=== PATIENT | female | born 1985 | race Two or more races ===

== ENCOUNTER 2024-08-29 14:40 | Emergency (ER) | payer MEDICAID, SELFPAY ==
--- NOTE | 2024-08-29 14:46 | PD.EDSKIN ---
ED Skin Abcess FB-RME/HPI General Chief complaint: Skin/Abscess/Foreign Body Stated complaint: RED BUMP RIGHT BREAST x 7 DAYS Time Seen by Provider: 08/29/24 14:41 Arrival date/time: 08/29/24 14:40 39-year-old female presents emergency department complaints of right breast swelling ongoing x 7 days patient reports no fever nausea vomiting no headache dizziness weakness patient reports no recent weight loss Limitations: no limitations Related Data Previous Rx's ?Medication ?Instructions ?Recorded ferrous sulfate 324 mg (65 mg 324 mg PO BID #60 tabs 01/13/22 iron) tablet,delayed release clindamycin HCl 300 mg capsule 300 mg PO TID 7 days #21 caps 08/29/24 Allergies Allergy/AdvReac Type Severity Reaction Status Date / Time No Known Allergies Allergy Verified 08/29/24 14:44 Review of Systems Review of Systems Systems Reviewed: All systems reviewed, normal except as documented Constitutional Constitutional: Reports system reviewed and no additional complaints, except as documented, Denies fever(s) and Denies headache(s) Eyes Eyes: Reports system reviewed and no additional complaints, except as documented and Denies blurry vision ENT Ears, Nose, Mouth, and Throat: Reports system reviewed and no additional complaints, except as documented, Denies headache(s), Denies nasal congestion and Denies nasal discharge Cardiovascular Cardiovascular: Reports system reviewed and no additional complaints, except as documented, Denies chest pain and Denies dyspnea Respiratory Respiratory: Reports system reviewed and no additional complaints, except as documented, Denies chest congestion, Denies cough and Denies dyspnea Gastrointestinal Gastrointestinal: Reports system reviewed and no additional complaints, except as documented and Denies abdominal pain Integumentary/Breasts Skin/Breast: Reports system reviewed and no additional complaints, except as documented, Denies rash, Reports breast pain, Reports breast skin changes and Reports breast swelling Neurologic Neurologic: Reports system reviewed and no additional complaints, except as documented, Reports as per HPI and Denies headache(s) Past Medical History Past Medical History NEUROLOGIC: Negative Neurological Disorders CARDIAC: Negative Cardiac Disorders or Congestive Heart Failure RESPIRATORY: Negative Chronic Obstructive Pulmonary Disease (COPD) GENITOURINARY: Negative Genitourinary Disorders or Renal Disease REPRODUCTIVE: Positive Previous Pregnancies ( 4, Para 3) ENDOCRINE: Negative Diabetes Mellitus Type 1 or Diabetes Mellitus Type 2 HEMATOLOGIC: Positive Anemia Surgical History SURGICAL: Positive Section (X1) Social History SMOKING STATUS: Never smoker SUBSTANCE USE: does not use ED Exam General Limitations: Present no limitations General appearance: Present alert and in no apparent distress Head Head exam: Present atraumatic Eye Eye exam: Present normal appearance, PERRL and EOMI ENT ENT exam: Present normal exam, normal oropharynx and mucous membranes moist Neck Neck exam: Present normal inspection, full ROM and trachea midline Chest Chest inspection: Present symmetric chest wall rise and tenderness (Right breast swelling) Respiratory Respiratory exam: Present normal lung sounds bilaterally Cardiovascular Cardiovascular exam: Present regular rate, normal rhythm and normal heart sounds Abdominal Exam Abdominal exam: Present soft and normal bowel sounds Extremities Exam Extremities exam: Present normal inspection and full ROM Back Exam Back exam: Present normal inspection and full ROM Neurological Exam Neurological exam: Present alert, oriented X3 and CN II-XII intact Psychiatric Psychiatric exam: Present normal affect and normal mood Skin Skin exam: Present warm, dry, intact and normal color Course Quality Measures none Orders Category Date Time Status US breast RT complete Stat Exams 08/29/24 15:03 Completed CBC Stat Lab 08/29/24 15:57 Completed CMP [Comprehensive Metabolic Panel] Stat Lab 08/29/24 15:57 Completed HCG,Qualitative Serum Stat Lab 08/29/24 15:57 Completed Path Review Blood Smear Stat Lab 08/29/24 15:57 Completed Clindamycin Vial [Cleocin vial] Med 08/29/24 16:50 Discontinued 600 mg IM X1 ONE Ibuprofen Tab [Motrin Tab] Med 08/29/24 15:05 Discontinued 600 mg PO X1 ONE Vital Signs Vital signs: Vital Signs Temperature 98.4 F 08/29/24 14:51 Pulse Rate 85 08/29/24 14:51 Respiratory Rate 16 08/29/24 14:51 Blood Pressure 116/75 08/29/24 14:51 Pulse Oximetry (%) 100 08/29/24 14:51 Oxygen Delivery Method Room Air 08/29/24 14:51 O2 saturation 100% room air within normal limits Skin / Abscess / Foreign Body MDM Narrative MDM Narrative:: 39-year-old female presents emergency department complaints of right breast swelling ongoing x 7 days patient reports no fever nausea vomiting no headache dizziness weakness patient reports no recent weight loss On exam patient well-appearing patient does not appear ill or toxic and in no acute distress With a female content management specialist examined the patient patient appears to have a abscess right breast Lab work as well as ultrasound obtained Lab work no leukocytosis patient has a chronic anemia Ultrasound of the breast consistent with abscess Consultation: I spoke with Dr. Chang states he can do a ultrasound-guided breast drainage on Saturday Patient instructed to return on Saturday patient states clear understanding that she will return for further evaluation and treatment on Saturday Patient data External records reviewed:: [facility] previous records Clinical information provided by:: patient Social determinants that could affect healthcare access:: none Patient has the following chronic illnesses:: Anemia How is presenting disease/condition affected by chronic disease/condition?: uneffected by Evaluation data The following diagnostics were reviewed and interpreted by me:: lab results and radiology exam(s) Lab and/or radiology exams considered but not ordered:: Labs radiology obtained Interpretation Summary: Reviewed by me Medications / Prescriptions Medications or Prescriptions considered but not ordered:: Given Medication administrations:: Medication Administration History Discontinued Medications Clindamycin Phosphate (Clindamycin Phos Inj 150 Mg/Ml Vial 6 Ml) 600 mg IM X1 ONE Stop: 08/29/24 16:51 Last Admin: 08/29/24 17:04 Dose: 600 mg Documented By: Ibuprofen (Ibuprofen Tab 600 Mg Tablet) 600 mg PO X1 ONE Stop: 08/29/24 15:06 Last Admin: 08/29/24 15:41 Dose: 600 mg Documented By: Given Consultations Consultation(s) initiated? (list below): Yes Consultation #1 (Physician, Specialty, Details): Interventional radiologist Dr. Chang Diagnosis Skin/Abscess Differential Diagnosis: abscess of skin or subcutaneous tissue and cellulitis Most likely diagnosis given after review of the tests above:: Abscess breast Admission Indicated Admission indicated?: not indicated Admission Request Was there a request for admission?: No Disposition Plan Disposition Plan: Discharge Discharge Attestation Discharge Attestation: The patient and all family members were given an opportunity to ask questions and understood the discharge instructions. Discharge instructions specifically effects, indications for sooner follow up or return to the emergency department, and the expected course of current diagnosis. Patient condition: Stable Discharge Plan Plan Patient Disposition: HOME (Self Care) Disposition Comment: Stable Prescriptions/Referrals Prescriptions/Med Rec: New clindamycin HCl 300 mg capsule 300 mg PO TID 7 Days Qty: 21 0RF No Action ferrous sulfate 324 mg (65 mg iron) tablet,delayed release (DR/EC) 324 mg PO BID Qty: 60 0RF Referrals: Yuri Acevedo MD [Primary Care Provider] - 08/31/24 Problem List Clinical Impression: Abscess of breast, right Patient/Caregiver Discharge Instructions Education Materials: ED Abscess Antibiotic ... Additional Instructions: Please return on Saturday at 9 AM for ultrasound-guided breast drainage for worsening symptoms return immediately Print Language: Korean Stand Alone Forms: Eugenie Award Info., Patient Portal Info Letter PA/FINAL ASSEMBLY INSPECTOR Supervising Physician PA/FINAL ASSEMBLY INSPECTOR Supervising Physician: Dr. Hong
[2024-08-29 14:51] VITALS: BP 116/75; PULSE 85; RESP 16; TEMP 36.9; O2SAT 100; BMI 19.8
--- NOTE | 2024-08-29 15:03 | XR_ITS ---
Examination: Breast ultrasound, unilateral, right Date and time of exam: August 29, 2024 1519 hrs. Indications: Palpable lump in the right breast note is beginning one week ago with redness Technique: Real-time zheng scale ultrasonographic imaging performed right breast including all 4 quadrants as well as nipple retroareolar and axillary region. Findings: Nipple 2 3:00 mass with internal echoes consistent with abscess 7.9 x 2.8 x 4.5 cm Enlarged axillary lymph node Impression: Findings most consistent with large right breast abscess as above
[2024-08-29] MEDS: IBUPROFEN TAB 600 MG TABLET PO (15:41)
[2024-08-29 16:36] LABS: Basophils % (Auto) 0 % (0-2.5); Eosinophils # (Auto) 0.1 Thou/mm3 (0.0-0.5); Eosinophils % (Auto) 2 % (0-10); Immature Granulocytes % (Auto) 0 % (0-0); Immature Granulocytes Auto 0.01 Thou/mm3 (0.00-0.00); Lymphocytes # (Auto) 1.6 Thou/mm3 (1.0-4.8); Lymphocytes % (Auto) 24 % (10-50); Mean Corpuscular HGB Conc 28.6 g/dl (31.0-37.0); Mean Corpuscular Volume 63 fL (80-100); Monocytes # (Auto) 0.6 Thou/mm3 (0.0-0.8); Monocytes % (Auto) 9 % (0-12); Neutrophils # (Auto) 4.5 Thou/mm3 (1.8-7.7); Neutrophils % (Auto) 66 % (37-80); Nucleated Red Blood Cell % 0 /100 WBC (0); Platelet Count 360 Thou/mm3 (140-440); RDW Standard Deviation 40.2 fL (36.4-46.3); Red Blood Count 4.45 Miln/mm3 (4.00-5.20); White Blood Count 6.8 Thou/mm3 (3.6-11.0)
[2024-08-29 16:39] LABS: Alanine Aminotransferase 11 U/L (10-49); Albumin, Serum 4.5 gm/dL (3.5-5.0); Albumin/Globulin Ratio 1.2 (1.2-2.2); Alkaline Phosphatase 93 U/L (46-116); Anion Gap 9 (7-16); Aspartate Amino Transferase 22 U/L (0-34); BUN/Creatinine Ratio 22 Ratio (12-20); Bilirubin,Total 0.2 mg/dL (0.3-1.2); Blood Urea Nitrogen 11 mg/dL (9-23); Calcium 9.1 mg/dL (8.3-10.6); Calcium (Corrected) 9.1 mg/dL (8.5-10.1); Carbon Dioxide 26.3 mMol/L (20.0-31.0); Chloride 104 mMol/L (98-107); Creatinine (Component) 0.5 mg/dL (0.6-1.3); Estimated Creatinine Clearance 110.7 mL/min (>60); Globulin 3.7 gm/dL (2.3-3.5); Glucose 101 mg/dL (74-106); Osmolality,Calculated 276 (275-295); Potassium 3.8 mMol/L (3.4-5.1); Sodium 139 mMol/L (136-145); Total Protein 8.2 gm/dL (5.7-8.2); eGFR > 60 See Note
[2024-08-29 16:45] LABS: HCG,Qualitative Serum Negative
[2024-08-29] MEDS: CLINDAMYCIN PHOS INJ 150 MG/ML VIAL 6 ML 600 MG IM (17:04)
[2024-08-30 05:21] LABS: Path Review Blood Smear Sent to Pathologist
== END 2024-08-29 17:12 | disposition home or self-care (01) ==
PROVIDERS: Nurse Practitioner Primary Care; Emergency Provider Emergency Medicine; PCP Family Medicine
DX: N61.1 Abscess of the breast and nipple (principal)
CPT/HCPCS: 36415; 76641; 80053; 84703; 85025; 96372; 99284; J0736; A9270

== ENCOUNTER 2024-08-31 09:08 | Emergency (ER) | payer MEDICAID, SELFPAY ==
--- NOTE | 2024-08-31 09:14 | XR_ITS ---
Examination: Right breast sonography limited TECHNIQUE: Limited transabdominal sonographic images right breast INDICATIONS: Right breast abscess on breast sonogram August 29, 2024 Exam date and time: August 31, 2024 and 46 hours FINDINGS: Right breast abscess noted, 4 cm in dimension The patient indicated she did not wish to have the drainage procedure performed IMPRESSION: Patient declined the procedure
--- NOTE | 2024-08-31 09:15 | PD.EDSKIN ---
ED Skin Abcess FB-RME/HPI General Chief complaint: Wound Recheck / Suture Removal Stated complaint: RIGHT BREAST ABSCESS FOLLOW UP/DRAINAGE Time Seen by Provider: 08/31/24 09:13 Arrival date/time: 08/31/24 09:08 39-year-old female presents to the emergency department with complaints of swelling and abscess to the right breast patient was seen by myself 2 days ago was instructed to return today so the interventional radiologist can drain the abscess Limitations: no limitations Related Data Previous Rx's ?Medication ?Instructions ?Recorded ferrous sulfate 324 mg (65 mg 324 mg PO BID #60 tabs 01/13/22 iron) tablet,delayed release clindamycin HCl 300 mg capsule 300 mg PO TID 7 days #21 caps 08/29/24 Allergies Allergy/AdvReac Type Severity Reaction Status Date / Time No Known Allergies Allergy Verified 08/31/24 09:12 Review of Systems Review of Systems Systems Reviewed: All systems reviewed, normal except as documented Constitutional Constitutional: Reports system reviewed and no additional complaints, except as documented, Denies fever(s) and Denies headache(s) Eyes Eyes: Reports system reviewed and no additional complaints, except as documented and Denies blurry vision ENT Ears, Nose, Mouth, and Throat: Reports system reviewed and no additional complaints, except as documented, Denies headache(s), Denies nasal congestion and Denies nasal discharge Cardiovascular Cardiovascular: Reports system reviewed and no additional complaints, except as documented, Denies chest pain and Denies dyspnea Respiratory Respiratory: Reports system reviewed and no additional complaints, except as documented, Denies chest congestion, Denies cough and Denies dyspnea Gastrointestinal Gastrointestinal: Reports system reviewed and no additional complaints, except as documented and Denies abdominal pain Integumentary/Breasts Skin/Breast: Reports system reviewed and no additional complaints, except as documented, Denies rash, Reports breast pain, Reports breast skin changes and Reports breast swelling Neurologic Neurologic: Reports system reviewed and no additional complaints, except as documented, Reports as per HPI and Denies headache(s) Past Medical History Past Medical History NEUROLOGIC: Negative Neurological Disorders CARDIAC: Negative Cardiac Disorders or Congestive Heart Failure RESPIRATORY: Negative Chronic Obstructive Pulmonary Disease (COPD) GENITOURINARY: Negative Genitourinary Disorders or Renal Disease REPRODUCTIVE: Positive Previous Pregnancies ENDOCRINE: Negative Diabetes Mellitus Type 1 or Diabetes Mellitus Type 2 HEMATOLOGIC: Positive Anemia Surgical History SURGICAL: Positive Section Social History SMOKING STATUS: Never smoker SUBSTANCE USE: does not use ED Exam General Limitations: Present no limitations General appearance: Present alert and in no apparent distress Head Head exam: Present atraumatic, normocephalic and normal inspection Eye Eye exam: Present normal appearance, PERRL and EOMI; Absent conjunctival injection ENT ENT exam: Present normal exam, normal oropharynx and mucous membranes moist Neck Neck exam: Present normal inspection, full ROM and trachea midline Chest Chest inspection: Present symmetric chest wall rise and tenderness (Right breast abscess mild swelling and erythema) Respiratory Respiratory exam: Present normal lung sounds bilaterally; Absent respiratory distress Cardiovascular Cardiovascular exam: Present regular rate, normal rhythm and normal heart sounds Abdominal Exam Abdominal exam: Present soft and normal bowel sounds; Absent distention, tenderness, guarding, rebound or rigidity Extremities Exam Extremities exam: Present normal inspection and full ROM Back Exam Back exam: Present normal inspection and full ROM Neurological Exam Neurological exam: Present alert, oriented X3, CN II-XII intact, normal gait and reflexes normal; Absent motor sensory deficit Psychiatric Psychiatric exam: Present normal affect and normal mood Skin Skin exam: Present warm, dry, intact and normal color; Absent rash Course Quality Measures none Orders Category Date Time Status US breast RT limited Stat Exams 08/31/24 09:14 Completed Lidocaine 1% Pf 30 ml [Xylocaine 1% Pf 30 ml] Med 08/31/24 10:25 Discontinued 30 ml .ROUTE .STK-MED ONE Vital Signs Vital signs: Vital Signs Temperature 98.3 F 08/31/24 09:30 Pulse Rate 87 08/31/24 09:30 Respiratory Rate 18 08/31/24 09:30 Blood Pressure 109/78 08/31/24 09:30 Pulse Oximetry (%) 97 08/31/24 09:30 Oxygen Delivery Method Room Air 08/31/24 09:30 O2 saturation 97% room air within normal limits Skin / Abscess / Foreign Body MDM Narrative MDM Narrative:: 39-year-old female presents to the emergency department with complaints of swelling and abscess to the right breast patient was seen by myself 2 days ago was instructed to return today so the interventional radiologist can drain the abscess On exam patient well-appearing patient does not appear ill or toxic in no acute distress On exam patient abscess has improved and patient reports that her symptoms have improved Patient was sent to ultrasound to have a breast drain but patient refused procedure while there Patient reports that she does not want a procedure done risks for not completing procedure were clearly stated to the patient Patient instructed to continue taking antibiotics as prescribed and if her symptoms persist or worsen she still is instructed to return for another attempt to do abscess drainage Patient data External records reviewed:: [facility] previous records Clinical information provided by:: patient Social determinants that could affect healthcare access:: none Patient has the following chronic illnesses:: None How is presenting disease/condition affected by chronic disease/condition?: no chronic disease Evaluation data The following diagnostics were reviewed and interpreted by me:: radiology exam(s) Lab and/or radiology exams considered but not ordered:: Radiology obtain Interpretation Summary: Reviewed by me Medications / Prescriptions Medications or Prescriptions considered but not ordered:: Given Medication administrations:: Medication Administration History Discontinued Medications Lidocaine HCl (Lidocaine Inj Pf 1% 30 Ml Vial) Confirm Administered Dose 30 ml .ROUTE .STK-MED ONE Stop: 08/31/24 10:26 Last Admin: 08/31/24 11:17 Dose: Not Given Documented By: FARIBA Non-Admin Reason: Patient Refused Given Consultations Consultation(s) initiated? (list below): No Diagnosis Skin/Abscess Differential Diagnosis: abscess of skin or subcutaneous tissue and cellulitis Most likely diagnosis given after review of the tests above:: Breast abscess Admission Indicated Admission indicated?: not indicated Admission Request Was there a request for admission?: No Disposition Plan Disposition Plan: Discharge Discharge Attestation Discharge Attestation: The patient and all family members were given an opportunity to ask questions and understood the discharge instructions. Discharge instructions specifically effects, indications for sooner follow up or return to the emergency department, and the expected course of current diagnosis. Patient condition: Stable Discharge Plan Plan Patient Disposition: HOME (Self Care) Disposition Comment: Stable Prescriptions/Referrals Prescriptions/Med Rec: No Action ferrous sulfate 324 mg (65 mg iron) tablet,delayed release (DR/EC) 324 mg PO BID Qty: 60 0RF clindamycin HCl 300 mg capsule 300 mg PO TID 7 Days Qty: 21 0RF Referrals: Yuri Acevedo MD [Primary Care Provider] - Problem List Clinical Impression: Abscess of breast, right Patient/Caregiver Discharge Instructions Education Materials: Abscess Drainage Additional Instructions: Please follow up with your primary care doctor in the next 24-48hrs for any worsening symptoms return here immediately Please take all antibiotics as prescribed Print Language: Turkmen Stand Alone Forms: Eugenie Award Info., Patient Portal Info Letter PA/GEOSCIENCES FACULTY MEMBER Supervising Physician PA/GEOSCIENCES FACULTY MEMBER Supervising Physician: Dr. Reina
[2024-08-31 09:30] VITALS: BP 109/78; PULSE 87; RESP 18; TEMP 36.8; O2SAT 97
== END 2024-08-31 11:20 | disposition home or self-care (01) ==
PROVIDERS: Emergency Provider Emergency Medicine; PCP Family Medicine
DX: N61.1 Abscess of the breast and nipple (principal)
CPT/HCPCS: 76642; 99284